=== PATIENT | female | born 1935 | race Caucasian/White ===

== ENCOUNTER 2020-01-31 07:10 | Day surgery (SDC) | payer OTHER ==
[2020-01-30 15:18] LABS: Absolute Lymphocytes (CBC) 1.5 K/uL (0.7-4.9); Basophils % 0.8 % (0-1.3); Hematocrit 46.7 % (36.0-45.0); Lymphocytes % 17.7 % (15.3-44.8); MPV 10.1 fL (7.6-11.3); RBC Red Blood Cell Count 4.82 M/uL (3.86-4.86)
[2020-01-30 16:00] LABS: Potassium 4.8 mmol/L (3.5-5.1)
--- OUTSIDE RECORDS SUMMARY | 2020-01-31 07:14 | XMS REPORT | Clinical Summary ---
:1935 Author Organization [facility] Address [address] [place] [address] Care Team Providers Name Role Phone MD Tamara Primary Care Provider Allergies No Known Active Allergies Medications Medication Sig Dispensed Refills Start Date End Date Status mirtazapine Take 30 mg by 0 05/06/2017 Act jeevan (REMERON) 30 MG mouth nightly. tablet multivitamin with Take 1 tablet 0 Active minerals tablet by mouth daily. glucosam/chond-msm Take 1 tablet 0 Active 1/C/katrina/bor by mouth (GLUCOSAMINE-CHOND daily. 1500 -MSM COMPLEX ORAL) mg/1288mg calcium Take 1 capsule 0 Activ e citrate/vitamin D3 by mouth (CALCIUM CITRATE + daily. With D ORAL) VITAMIN D3 AND k nitroglycerin Place 1 tablet 100 tablet 3 01/25/2018 Active (NITROSTAT) 0.4 MG (0.4 mg total) SL under the tabletIndications: tongue every 5 Aortic valve (five) minutes disorder as needed for chest pain (total of 3 tabs). coenzyme Q10 (CO Take 200 mg by 0 Active Q-10) 100 mg mouth daily. capsule famotidine Take 10 mg by 0 Activ e (PEPCID) 10 MG mouth 2 (two) tablet times a day. PROLIA 60 mg/mL Inject 60 mg 0 01/09/2019 Active syringe syringe under the skin once. levothyroxine Take 1 tablet 90 tablet 0 07/31/2019 A ctive (SYNTHROID) 75 mcg (75 mcg total) tabletIndications: by mouth Coronary artery daily. disease involving manchester coronary artery of [place] heart without angina pectoris, Aortic valve disorder, Atrial fibrillation, unspecified type (HCC) pravastatin Take 1 tablet 90 tablet 3 08/30/2019 Act jeevan (PRAVACHOL) 10 mg (10 mg total) tablet by mouth nightly. ezetimibe (ZETIA) TAKE 1 TABLET 90 tablet 0 10/24/2019 Active 10 mg tablet BY MOUTH EVERY DAY Myrbetriq 25 mg Take 25 mg by 0 11/17/2019 Active tablet extended mouth daily. release 24 hr metoprolol Take 1 tablet 90 tablet 3 01/05/2020 01/05/20 Acti ve succinate XL (25 mg total) 21 (TOPROL-XL) 25 mg by mouth 24 hr tablet daily. apixaban (ELIQUIS) Take 2.5 mg by 0 Active 2.5 mg tablet mouth 2 (two) times a day. furosemide (LASIX) Take 1/2 tab 90 tablet 3 01/05/2020 Active 20 mg tablet (10mg) po qd furosemide (LASIX) Take 1 tablet 180 tablet 3 03/23/201805/14 Discontinued 20 mg (20 mg total) 20 (Reord er) tabletIndications: by mouth 2 Aortic valve (two) times a disorder day. levothyroxine Take 1 tablet 90 tablet 3 08/09/2018 07/31/19 D iscontinued (SYNTHROID, (75 mcg total) 20 (Re order) LEVOXYL) 75 mcg by mouth tabletIndications: daily. Coronary artery disease involving manchester coronary artery of [place] heart without angina pectoris, Aortic valve disorder, Atrial fibrillation, unspecified type (HCC) apixaban (ELIQUIS) Take by mouth 0 0 Discontinued 2.5 mg tablet 2 (two) times 20 (M ed List a day. Cleanup) ezetimibe (ZETIA) Take 10 mg by 0 08/01/19 Discontinued 10 mg tablet mouth daily. 20 (Reo rder) pravastatin Take 10 mg by 0 08/30/19 Disc ontinued (PRAVACHOL) 10 MG mouth nightly. 20 (Reorder) tablet lisinopril Take 10 mg by 0 11/18/2018 01/05/20 Disc ontinued (PRINIVIL) 10 mg mouth daily. 20 (Med List tablet Cleanup) carvedilol (COREG) Take 1 tablet 180 tablet 3 01/03/201901/02 6.25 MG tablet (6.25 mg 20 total) by mouth 2 (two) times a day. lidocaine (ZTLIDO) Apply 1 patch 30 patch 3 01/20/2019 Discontinued 1.8 % adhesive topically 20 patch,medicated daily. ELIQUIS 5 mg TAKE 1 TABLET 180 tablet 3 04/04/2019 01/05/20 D iscontinued tabletIndications: BY MOUTH TWICE 20 Aortic valve A DAY disorder furosemide (LASIX) Take 1 tablet 180 tablet 3 05/15/201901/04 Discontinued 20 mg (20 mg total) 20 (Dose tabletIndications: by mouth 2 adjustment) Aortic valve (two) times a disorder day. ezetimibe (ZETIA) Take 1 tablet 90 tablet 0 08/01/2019 0 Discontinued 10 mg tablet (10 mg total) 20 by mouth daily. furosemide (LASIX) Take 20 mg by 0 0 Discontinued 20 mg tablet mouth 2 (two) 20 (Me d List times a day. Cleanup ) Take 1/2 tab (10mg) po bid furosemide (LASIX) Take 20 mg by 0 0 Discontinued 20 mg tablet mouth daily. 20 (Dos e Take 1/2 tab adjustm ent) (10mg) once daily Active Problems Problem Noted Date Pure hypercholesterolemia 01/06/2020 Chronic diastolic heart failure 01/06/2020 Essential hypertension 01/03/2020 Chronic cerebral ischemia 04/05/2019 Hyperlipidemia LDL goal <70 04/05/2019 Myalgia 04/05/2019 Moderate aortic stenosis 04/03/2019 Chronic bilateral low back pain without sciatica 01/20 Fatigue 09/20/2018 Stented coronary artery 08/09/2018 Late effect of stroke 08/08/2018 Vision disturbance 08/08/2018 Abnormality of gait 08/08/2018 Lymphedema 08/08/2018 Stroke (cerebrum) 07/20/2018 Complete hemianopia 07/10/2018 Acute exacerbation of CHF (congestive heart failure) 0 07/01/2018 Angina at rest 06/29/2018 Abnormal nuclear stress test 06/29/2018 Overview: Added automatically from request for waldo dubon [id number] Aortic valve disorder 01/25/2018 Systolic and diastolic CHF, acute on chronic 8 Bacteremia 09/06/2017 Osteomyelitis of foot 08/24/2017 Abscess or cellulitis of foot 08/22/2017 Atrial fibrillation 08/10/2017 Coronary artery disease involving manchester coronary miranda ry of man[place] heart 08/10/2017 without angina pectoris PAD (peripheral artery disease) 08/10/2017 Congestive heart failure 07/16/2017 Encounters Date Type Specialty Care Team Description 01/17/2020 Office Visit Ophthalmology Douglas Epstein, Unspecified visual field defects; Glaucomatous at rophy (cupping) of optic disc, bilateral 01/17/2020 Travel 01/15/2020 Telemedicine Physical Medicine and Jeanine Gomez, Late effect of stroke (Primary Dx); Rehabilitation Abnormality o f gait; Chronic bilater al low back pain without sciatica; Fatigue, unspec ified type; Lymphedema; Vision disturba nce 01/05/2020 Office Visit Cardiology Karen Nelson Coronary artery disease involving manchester coronary artery of [place] heart without angina pectoris (Primary Dx); MD Alejandro Pure hyperchole sterolemia; Essential hyper tension; Permanent atria l fibrillation (HCC); Chronic diastol ic heart failure (HCC); Moderate aortic stenosis; Pulmonary fibro sis (HCC) 01/05/2020 Orders Only Cardiology Jolie Britton MA 01/05/2020 Refill Cardiology Sha Britton Refill IRIS Dave 01/05/2020 Travel 01/03/2020 Lab Lab John Casanova Atrial fibrilla tionCruzito MD unspecified typ e (HCC) 01/03/2020 Office Visit Neurology John Casanova Atrial fibrilla tion, unspecified type (HCC) (Primary Dx); MD Cruzito Essential hyper tension; Hyperlipidemia LDL goal <70 01/03/2020 Travel 10/24/2019 Refill Cardiology Karen Nelson Refill MD Alejandro 10/23/2019 Refill Karen Howardill MD Alejandro 08/30/2019 Orders Only Cardiology Prosper Seo MA 08/01/2019 Orders Only Cardiology Prosper Seo MA 07/31/2019 Orders Only Cardiology Prosper Seo MA Coronary arter y disease involving man[place] coronary artery of [place] heart without angina pectoris; Aortic valve di sorder; Atrial fibrilla tion, unspecified type (HCC) 07/28/2019 Refill Karen Howard Refill MD Alejandro 07/12/2019 Travel 05/15/2019 Orders Only Cardiology Prosper Seo MA Aortic valve d isorder 04/05/2019 Office Visit Neurology John Casanova Atrial fibrilla tion, unspecified type (HCC) (Primary Dx); MD Cruzito Chronic cerebra l ischemia; Hyperlipidemia LDL goal <70; Myalgia 04/03/2019 Office Visit Cardiology Karen Nelson Coronary artery disease involving [place] coronary artery of [place] heart without angina pectoris (Primary Dx); MD Alejandro Systolic conges tive heart failure, unspecified HF chronicity (HCC); Atrial fibrilla tion, unspecified type (HCC); PAD (peripheral artery disease) ([facility]); Stented coronar y artery; Nonrheumatic ao rtic valve stenosis 04/01/2019 Refill Cardiology Karen Nelson Med Refill MD Alejandro after 01/30/2019 Surgical History Surgery Date Site/Laterality Comments ANGIOPLASTY CORONARY ANGIOPLASTY WITH STENT PLACEMENT AMPUTATION, TOE Left Great Toe HYSTERECTOMY TOTAL KNEE ARTHROPLASTY Left ELECTRICAL CARDIOVERSION 07/20/2017 CARDIAC ELECTROPHYSIOLOGY 07/19/2017 N/A Proced ure: Ep cardioversion PROCEDURE w bart; Surgeon: Karen Nelson MD; Locat ion: [facility] [employer] Invasiv e Location; Service: Cardio vascular; Laterality: N/A; AMPUTATION, TOE 08/26/2017 Toes/Left Procedure: AMPUT ATION OF SECOND TOE, PLAC EMENT ANTIBIOTIC BEADS LEFT FOOT; Surgeon: Cristofer Mckinley DPM; Lo cation: [facility] OPC 19 OR; Serv ice: Podiatry; Later ality: Left; stimulan resorbable antibiotic beads Medical devices from this surgery are in t he Implants section. CARDIAC CATHETERIZATION 09/02/2017 N/A Procedur e: Aortagram abdomen w run of f; Surgeon: Karen Nelson MD; Location: [facility] [employer] Invasive Locatio n; Service: Cardiol ogy; Laterality: N/A; CARDIAC CATHETERIZATION CARDIAC CATHETERIZATION 02/03/2018 N/A Procedur e: Cv arteriograms peripheral; Waldo geon: Karen Nelson MD; Location: [facility] Technology [employer] Architect Invasive Location; Servi ce: Cardiology; Lat erality: N/A; CARDIAC CATHETERIZATION 03/30/2018 N/A Procedur e: Angiogram extremity unilat eral; Surgeon: Lucian Nelson MD; Location: [facility] [employer] Architect Invasive Loc ation; Service: Cardiol ogy; Laterality: N/A; Left CARDIAC CATHETERIZATION 03/30/2018 N/A Procedur e: Cv balloon angioplasty firs t artery; Surgeon: Lucian Nelson MD; Location: [facility]; Service: Cardiol ogy; Laterality: N/A; Left Anterior Tibial and Peroneal CARDIAC CATHETERIZATION 07/04/2018 N/A Procedur e: Selective coronary angiogr aphy; Surgeon: Lucian Nelson MD; Location: [facility]; Service: Cardiol ogy; Laterality: N/A; CARDIAC CATHETERIZATION 07/08/2018 N/A Procedur e: Ivus coronary; Surgeon: Lucian Nelson MD; Location: [facility]; Service: Cardiol ogy; Laterality: N/A; IVUS of circumflex and L AD Medical devices from this surgery are in t he Implants section. CARDIAC CATHETERIZATION 07/08/2018 N/A Procedur e: Cv percutaneous coronary interve ntion; Surgeon: Lucian Nelson MD; Location: [facility]; Service: Cardiol ogy; Laterality: N/A; LAD and circumflex arter y Medical devices from this surgery are in t he Implants section. Medical History Medical History Date Comments Atrial fibrillation (HCC) Myocardial infarct (HCC) Hypertension Hypothyroidism CHF (congestive heart failure) (HCC) Coronary artery disease Kidney stone Fracture h/o back fracture 6 years ago Sepsis (HCC) Systolic heart failure (HCC) Ischemic cardiomyopathy Paroxysmal A-fib (HCC) Aortic stenosis Toe amputation status, left Stroke (HCC) Stroke (HCC) Family History Medical History Relation Name Comments Heart disease Father Heart disease Mother Relation Name Status Comments Father Mother Social History Tobacco Use Types Packs/Day Years Used Date Never Smoker Smokeless Tobacco: Never Used Alcohol Use Drinks/Week oz/Week Comments No Sex Assigned at Date Recorded Not on file Job Start Date Occupation Industry Not on file Not on file Not on file COVID-19 Exposure Response Date Recorded In the last month, have you been in contact with No / Unsure 01/05/2020 10:02 AM [employer] someone who was confirmed or suspected to have Coronavirus / COVID-19? Last Filed Vital Signs Vital Sign Reading Time Taken Comments Blood Pressure 98/66 01/05/2020 10:16 AM [employer] Pulse 101 01/05/2020 10:16 AM [employer] Temperature 36.1 C (97 F) 01/03/2020 10:55 AM [employer] Respiratory Rate 18 04/03/2019 1:01 PM [employer] Oxygen Saturation - - Inhaled Oxygen Concentration - - Weight 70.3 kg (155 lb) 01/17/2020 9:23 AM [employer] Height 172.7 cm (5' 8") 01/17/2020 9:23 AM [employer] Body Mass Index 23.57 01/17/2020 9:23 AM [employer] Plan of Treatment Date Type Specialty Care Team Description 02/12/2020 Office Visit Ophthalmology Pao Weber MD [address] [place], [place] [address] [phone] 07/05/2020 Office Visit Cardiology Karen Nelson MD [address] [place], [place] [address] [phone] 01/13/2021 Office Visit Physical Medicine and Jeanine Gomez MD Rehabilitation [address] [place], [place] [address] [phone] Health Maintenance Due Date Last Done Comments SHINGLES VACCINES (#1) 1983 65+ PNEUMOCOCCAL VACCINE (2 of 2 - PPSV23) 04/23/199811/18, 11/13/2014 INFLUENZA VACCINE 09/30/2019 Implants Implanted Type Area Park Ranger Device Shelf Model / Identifier Expiration Serial / Date Lot Stent Coronary Syst Synergy (Mr) 3.00mm X 24mm - [id number] Coronary N/A: BSC 05/03/2020 [id number] / Implanted: 07/08/2018 at [facility] (Quantity not on file) Terence nts N/A INTERVENTIONAL / CARDIOLOGY [id number] Stent Coronary Syst Synergy (Mr) 3.50mm X 32mm - [id number] Coronary N/A: BSC 04/19/2020 [id number] / Implanted: 07/08/2018 at [facility] (Quantity not on file) Terence nts N/A INTERVENTIONAL / CARDIOLOGY [id number] Jorge Langley Rapid Cure 5cc Paste Volume 12cc Bead Volume - [id number] Surgical Left: BIOCOMPOSITES 01/29/2020 [id number] / Implanted: Qty: 1 on 08/26/2017 by Cristofer Mckinley D PM at [facility] Implants; Foot / Expanders; 01/15-R35 7 Extenders; Surgical Wires System Clsr Sut Meditd 6fr Perclose Proglide - [id number] Surgic al N/A: SHEPHERD VASCULAR 03/31/2020 [id number] / Implanted: 07/08/2018 at [facility] (Quantity not on file) Imp lants; N/A DEVICES / Expanders; [id number] Extenders; Surgical Wires Procedures Procedure Name Priority Date/Time Associated Diagnosis Comme nts ECG 12-LEAD Routine 01/05/2020 10:20 Permanent atrial Results for this AM [employer] fibrillation (HCC) procedure are in the results section. ANTI XA APIXABAN Routine 01/03/2020 11:52 Atrial fibrillation, Results for this AM [employer] ADVISOR unspecified type procedure a re in ([facility]) the results section. TTE COMPLETE, WO Routine 04/03/2019 1:32 Atrial fibrillation, Results for this CONTRAST, W DOPPLER PM [employer] ADVIS[employer] unspecified type proc edure are in ([address]) ([facility]) the results Coronary artery section. disease involving man[place] coronary artery of [place] heart without angina pectoris PAD (peripheral artery disease) ([facility]) ECG 12-LEAD Routine 04/03/2019 1:11 Systolic congestive Resu lts for this PM [employer] heart failure, procedure are in unspecified HF the results chronicity ([facility]) section. Atrial fibrillation, unspecified type ([facility]) after 01/30/2019 Results ECG 12 lead (01/05/2020 10:20 AM [employer])Only the most recent of2 resultswithin the time period is included. Pathologist Sig nature Ventricular rate 108 [facility] Atrial rate 129 [facility] QRSD interval 120 [facility] QT interval 342 [facility] QTC interval 458 [facility] QRS axis 1 -74 [facility] T wave axis 98 [facility] EKG impression Atrial fibrillation with rap id ventricular response-Left axis deviation-Anterolateral infarct (cited on or before 03-JAN-2019)-Abnormal ECG-In automated comparison with ECG of 03-APR-2019 13:11,-Questionable change in initial forces of Lateral [facility] MUSE leads- Specimen Narrative Performed At This result has an attachment that is no t available. Performing Organization Address [facility]/ZIP Code Phon e Number [facility] MUSE [address] [place] [address] Anti Xa Apixaban (01/03/2020 11:52 AM [employer]OR) Anti Xa, Apixaban 227 ng/mL [facility] Comment: HOSPITAL Therapeutic ranges not available, typical levels 2-4 h rs post 2.5 mg dose: 16-108 ng/mL; post 5 mg dose: 103-155 ng/ mL. Apixaban is approved for use without monitoring. Plasma apixaban levels depend on dose and sample timin g. This test has been modified from the english division chair's in structions. The performance characteristics were determined by [facility] in a manner consistent with CLIA requirements. This test has not been cleared or a pproved by U.S. Food and Drug Administration. Specimen Blood Performing Organization Address City/[facility] Phon e Number [facility] DEPARTMENT OF PATHOLOGY AND [address], [place] [address] GENOMIC MEDICINE [facility] [address] [place] [address] Echocardiogram complete w contrast and 3D if needed (04/03/2019 1:32 PM [employer]) Specimen Narrative Performed At [facility] Echo cardiography Report Pat.Name: DOTTY TUTTLE Pat.ID: [id number] .Date: 04/03/2019 Refer.MD: KAREN NELSON MD Exam Time: 11:26:00 AM Study Type:Ro utine Echo Height: 69in Weight: 154lb BSA: 1.85 m2 Ag e: 1935,83Y Sex: FEMALE BP: 98/62 HR: 113 bpm Sonogrp hr: JG Knott Pat. Stat.:Outpatient Room: [facility] Study Status:Final Echo Event ID:[id number] Order ID: [id number] Reason for Study:Atrial fibrillation, un specified type (HCC) [I48.91 (ICD-10-CM)]; Coronary artery disease involving man[place] coronary artery of [place] heart withoutangina pectoris [I25.10 (ICD-10-C M)]; PAD (peripheral artery disease)([facility]) [I73.9 (ICD-10-CM)] History / Clinical:Atrial Fibrillation, Hypertension, PR Procedures: 2D Echo, Colorflow Doppler, Intravenous Optison Contrast Race: C SUMMARY: Concentric left ventricular remodeling. LV EF varies with RR interval from low 3 0s to low 50s. LA volume is severely enlarged. LV filling pressure is elevated. Estimated PA systolic pressure is 48 mmH g, assuming a mean RAP of 10 mmHg. FINDINGS: LV: LV size is normal. Concentr ic left ventricular remodeling. Overall wall motion is mildly hypokinetic. LV EF varies with RR interval from l ow 30s to low 50s. RV: RV size is normal. RV systo lic function is normal. LA: LA volume is severely enlar ged. RA: RA volume is mild to modera tely enlarged. AO: Aortic root diameter is nor mal. MARIIA: No pericardial effusion. AV: Severe thickening and calci fication of AV leaflets. MV: Moderate to severe thickeni ng and calcification of mitral leaflets. Mild mitral r egurgitation. PV: No structural PV abnormalit ies noted. TV: No structural TV abnormalit ies noted. Mild tricuspid regurgitation Elizabeth: LV relaxation is impaired. L V filling pressure is elevated. Other: Estimated PA systolic pressu re is 48 mmHg, assuming a mean RAP of 10 mmHg. MEASUREMENTS: 2D Parasternal Long [place] Ao An 2.2 cm LVPWd 1.2 cm Ao Rtd 3.3 cm Index 1.8 cm/m2 LA Ds 3.8 cm IVSd 0.91 cm RWT 0.59 LVIDd 3.9 cm Index 2.1 cm/m2 LV Mass 128 g (87-12 9) LVIDs 2.8 cm LVM In dex 69 g/m LV%fs 27 % LVOT 2.1 cm LV EF Biplane LV EF 26 % (55-7 5) LA Sng Plane LA Area 26 cm (8.8-23.4) LA Vol 95 ml Index 51 ml/m2 LA LngAx 6 cm RA Sng Plane RA Vol 83 ml Index 45 ml/m2 RA LngAx 6.5 cm RA Area 25 cm (8.3-1 9.5) LVOT LVOT Area 3.4 cm DOPPLER TV Pressure Gradient TV PkVel 309 cm/s TV PG 38 mmHg Signed 04/04/2019 03:27 PM Chema Govea M.D. Procedure Note Interface, Radiology Results In - 2019 3:31 PM [employer] [facility] Echocardiography Report Pat.Name: DOTTY TUTTLE Pat.I D: [id number] .Date: 04/03/2019 Refer .MD: KAREN NELSON MD Exam Time: 11:26:00 AM Study Type:Routine Echo Height: 69in Weigh t: 154lb BSA: 1.85 m2 Age: 1 1935,83Y Sex: FEMALE BP: 98/62 HR: 113 bpm Sonog rphr: JG Knott Pat. Stat.:Outpatient Room: [facility] Study Status:Final Echo Event ID:[id number] Order ID: [id number] Reason for Study:Atrial fibrillation, un specified type (HCC) [I48.91 (ICD-10-CM)]; Coronary artery disease involving [place] coronary artery of [place] heart withoutangina pectoris [I25.10 (ICD-10-C M)]; PAD (peripheral artery disease)(HCC) [I73.9 (ICD-10-CM)] History / Clinical:Atrial Fibrillation, Hypertension, PR Procedures: 2D Echo, Colorflow Doppler, Intravenous Optison Contrast Race: C SUMMARY: Concentric left ventricular remodeling. LV EF varies with RR interval from low 3 0s to low 50s. LA volume is severely enlarged. LV filling pressure is elevated. Estimated PA systolic pressure is 48 mmH g, assuming a mean RAP of 10 mmHg. FINDINGS: LV: LV size is normal. Concentric left ventricular remodeling. Overall wall motion is mildly hypokinetic. LV EF varies with RR interval from low 30s to low 50s. RV: RV size is normal. RV systolic function is normal. LA: LA volume is severely enlarged . RA: RA volume is mild to moderatel y enlarged. AO: Aortic root diameter is normal . MARIIA: No pericardial effusion. AV: Severe thickening and calcific ation of AV leaflets. MV: Moderate to severe thickening and calcification of mitral leaflets. Mild mitral regurgi tation. PV: No structural PV abnormalities noted. TV: No structural TV abnormalities noted. Mild tricuspid regurgitation Elizabeth: LV relaxation is impaired. LV filling pressure is elevated. Other: Estimated PA systolic pressure is 48 mmHg, assuming a mean RAP of 10 mmHg. MEASUREMENTS: 2D Parasternal Long [place] Ao An 2.2 cm LVPW d 1.2 cm Ao Rtd 3.3 cm Inde x 1.8 cm/m2 LA Ds 3.8 cm IVSd 0.91 cm RWT 0.59 LVIDd 3.9 cm Inde x 2.1 cm/m2 LV Mass 128 g (87-129) LVIDs 2.8 cm LVM Index 69 g/m LV%fs 27 % LVOT 2.1 cm LV EF Biplane LV EF 26 % (55-75) LA Sng Plane LA Area 26 cm (8.8-23.4) L A Vol 95 ml Index 51 ml/m2 LA LngAx 6 cm RA Sng Plane RA Vol 83 ml Inde x 45 ml/m2 RA LngAx 6.5 cm RA Area 25 cm (8.3-19.5) LVOT LVOT Area 3.4 cm DOPPLER TV Pressure Gradient TV PkVel 309 cm/s TV P G 38 mmHg Signed 04/04/2019 03:27 PM Chema Govea M.D. Performing Organization Address City/State/ZIP Code Phon e Number [facility] [address] [place] [address] after 01/30/2019 Insurance Payer Benefit Plan / Subscriber ID Effective Dates Phone Addre ss Type Group MEDICARE MEDICARE PART A AND [id number] 1998-[place] Medicare B t AETNA [facility]NA [facility] [id number] 2000-[place] Indemnity INDEMNITY t Advance Directives For more information, please contact: [phone] Type Date Recorded Patient Morning News Producer Explanati on Advance Directives, Living Will and Medical Power of Financial Controller Advance Directives, 02/01/2018 12:00 AM DURABLE P ower of Living Will and Financial Controller Medical Power of Financial Controller
--- OUTSIDE RECORDS SUMMARY | 2020-01-31 07:15 | XMS REPORT | Continuity of Care Document ---
:[address] [facility] t Address [address] [place] [address] Care Team Providers Name Role Phone Tamara GILL Primary Care Physician Gonzalo Epstein MD Attending Clinician Christian Jimenez MD Attending Clinician Leslie GILL, R. Attending Clinician Reba SIMMONS Attending Clinician Unavailable Cruzito Fry MD Attending Clinician Gabbi SIMMONS Attending Clinician Unavailable Payers Payer Name Policy Type Policy Effective Date Expiration Date Sour ce Number MEDICAREMEDICARE PART [id number] 1998 [facility] A AND 00:00:00 [facility] [id number] 1998[facility] [place] [place] [id number] 2000 [facility] 00:00:00 Sabianist [id number] 03/2000-PresentIndemni ty Problems Condition Condition Condition Status Onset Resolution Last Treating Co mments Source Name Details Category Date Date Treatment Clinician Date 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 1-07 [facility] sterolemia sterolemia 00:00: st 00 Chronic Chronic Disease Active 2019-03 [place] diastolic diastolic 1-07 [facility] jennifer heart heart 00:00: st failure failure 00 Essential Essential Disease Active 2019-03 [place] [facility] hypertensi hypertensi 1-04 Me th[facility] on on 00:00: st 00 Chronic Chronic Disease Active [place] cerebral cerebral 2-05 Method i ischemia ischemia 00:00: st 00 Hyperlipid Hyperlipid Disease Active [place] emia LDL emia LDL 2-05 Method i goal <70 goal <70 00:00: st 00 Myalgia Myalgia Disease Active [place] 2-05 Methodi 00:00: st 00 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-03 [facility] stenosis stenosis 00:00: st 00 Chronic Chronic Disease Active 2018-03 [place] bilateral bilateral 1-22 [facility] jennifer low back low back 00:00: st pain pain 00 without without sciatica sciatica Fatigue Fatigue Disease Active [place] 7-23 Methodi 00:00: st 00 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 Method i artery artery 00:00: st 00 Late Late Disease Active [place] effect of effect of 6-10 Meth jennifer stroke stroke 00:00: st 00 Vision Vision Disease Active [place] disturbanc disturbanc 6-10 Me odi e e 00:00: st 00 Abnormalit Abnormalit Disease Active [place] y of gait y of gait 6-10 Meth jennifer 00:00: st 00 Lymphedema Lymphedema Disease Active [place] 6-10 [facility]i 00:00: st 00 Stroke Stroke Disease Active [place] (cerebrum) (cerebrum) 5-22 Me thodi 00:00: st 00 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 5-12 Me thodi 00:00: st 00 Acute Acute Disease Active [place] exacerbati exacerbati 5-03 Me [facility] on of CHF on of CHF 00:00: st (congestiv (congestiv 00 e heart e heart failure) failure) Angina at Angina at Disease Active [place] [facility] rest rest - Methodi 00:00: st 00 Abnormal Abnormal Disease Active Overview: [place] nuclear nuclear 5- Added [facility] stress stress 00:00: automatic st test test 00 ally from request for surgery [id number] Aortic Aortic Disease Active 2017-03 [place] valve valve 03-27 [facility] disorder disorder 00:00: st 00 Systolic Systolic Disease Active [place] and and 09-06 [facility] diastolic diastolic 00:00: st CHF, acute CHF, acute 00 on chronic on chronic Bacteremia Bacteremia Disease Active [facility] 7-09 Methodi 00:00: st 00 Osteomyeli Osteomyeli Disease Active [facility] tis of tis of 6-26 [facility] foot foot 00:00: st 00 Abscess or Abscess or Disease Active [facility] cellulitis cellulitis 6-24 [facility] of foot of foot 00:00: st Atrial Atrial Disease Active [place] fibrillati fibrillati 6-12 [facility] on on 00:00: st 00 [facility] disease disease 00:00: st involving involving 00 eek eek coronary coronary artery of artery of [place] heart heart without without angina angina pectoris pectoris PAD PAD Disease Active [place] (periphera (periphera 6-12 Me [facility] l artery l artery 00:00: st disease) disease) 00 Congestive Congestive Disease Active [facility] heart heart 5-18 [facility] failure failure 00:00: st 00 Allergies, Adverse Reactions, Alerts This patient has no known allergies or adverse reactions. Family History Family Member Diagnosis Comments Start Date Stop Date Source Natural father Heart disease [facility] Natural mother Heart disease [facility] Social History Social Habit Start Date Stop Date Quantity Comments Source Sex Assigned At [facility] ethodist Exposure to Not sure [place] Metho dist SARS-CoV-2 (event) Tobacco use and 2020-01-17 2020-01-17 Never used [facility] ethodist exposure 00:00:00 00:00:00 Alcohol intake 2020-01-17 2020-01-17 [facility] non-drinker of alcohol (finding) Smoking Status Start Date Stop Date Source Never smoker [facility] t Medications Ordered Filled Start Stop Current Ordering Indication Dosage Frequency Signature Comments Components Source Medication Medication Date Date Medication? Clinician (SIG) Name Name multivitami 2019-03 Yes 1{tbl} QD Take 1 [place] n with 1-18 tablet by Methodi minerals 09:23: mouth st tablet 02 daily. glucosam/ch 2019-03 Yes 1{tbl} QD Take 1 [place] ond-msm1/C/ 1-18 tablet by Met lazaro herndon/bor 09:23: mouth st (GLUCOSAMIN 02 daily. E-CHOND-MSM 1500 COMPLEX mg/1288mg ORAL) coenzyme 2019-03 Yes 200mg QD Take 200 [place] Q10 (CO 1-18 mg by Methodi Q-10) 100 09:23: mouth st mg capsule 02 daily. famotidine 2019-03 Yes 10mg Q.5D Take 10 mg [place] (PEPCID) 10 1-18 by mouth 2 Me [facility] MG tablet 09:23: (two) st 02 times a day. calcium 2019-03 Yes 1{capsu QD Take 1 [place] citrate/vit 1-18 le} capsule by Me [facility] carson D3 09:21: mouth st (CALCIUM 12 daily. CITRATE + D With ORAL) VITAMIN D3 AND k apixaban 2019-03 Yes 2.5mg Q.5D Take 2.5 [place] (ELIQUIS) 1-18 mg by Methodi 2.5 mg 09:21: mouth 2 st tablet 12 (two) times a day. furosemide 2019-03- No 20mg QD Take 20 mg [facility] (LASIX) 20 03-06 by mouth Meth jennifer mg tablet 14:06: 00:[address] 52 :00 Take 1/2 tab (10mg) once daily furosemide 2019-03 2020- No 20mg Q.5D Take 20 mg [place] (LASIX) 20 03-06 by mouth 2 Me [facility] mg tablet 14:06: 00:00 (two) st 37 :00 times a day. Take 1/2 tab (10mg) po bid furosemide 2019-03 Yes Take 1/2 [place] [facility] (LASIX) 20 03-06 tab (10mg) Met hodi mg tablet 00:00: po qd st 00 metoprolol 2019-03- Yes 25mg QD Take 1 [place] succinate 03-06 tablet (25 Met hodi XL 00:00: 23:59 mg total) st (TOPROL-XL) 00 :00 by mouth 25 mg 24 hr daily. tablet Myrbetriq Yes 25mg QD Take 25 mg [place] 25 mg 9-18 by mouth Methodi tablet 00:00: daily. st extended 00 release 24 hr ezetimibe Yes TAKE 1 [place] (ZETIA) 10 8-25 TABLET BY Meth jennifer mg tablet 00:00: MOUTH st 00 EVERY DAY pravastatin 0 2019- No 10mg QD Take 10 mg [place] (PRAVACHOL) 08-29 07 by mouth Met hodi 10 MG 14:48: 00:[address] tablet 58 :00 pravastatin 2019-0 Yes 10mg QD Take 1 [place] (PRAVACHOL) 7 tablet (10 Me thodi 10 mg 00:00: mg total) st tablet 00 by mouth nightly. ezetimibe 2019-2019- No 10mg QD Take 10 mg [place] (ZETIA) 10 07-31 06- by mouth Meth jennifer mg tablet 11:05: 00:[address] 36 :00 ezetimibe 2019-0 2019- No 10mg QD Take 1 [place] (ZETIA) 10 07-31 08-25 tablet (10 [facility] mg tablet 00:00: 00:00 mg total) st 00 :00 by mouth daily. levothyroxi Yes Atrial 75ug QD Take 1 [place] ne 07-30 fibrillatio tablet (75 [facility] (SYNTHROID) 00:00: n, mcg total) st 75 mcg 00 unspecified by mouth tablet type (HCC) daily. furosemide 2019- No Aortic 20mg Q.5D Take 1 [place] (LASIX) 20 3-16 01-04 valve tablet (20 M ethodi mg tablet 00:00: 00:00 disorder mg total) st 00 :00 by mouth 2 (two) times a day. apixaban 2019- 2020- No Q.5D Take by [place] (ELIQUIS) 205 mouth 2 Method i 2.5 mg 10:53: 00:00 (two) st tablet 41 :00 times a day. ELIQUIS 5 2020- No Aortic TAKE 1 [place] [facility] mg tablet 2-01-04 valve TABLET BY Met hodi 00:00: 00:[address] 00 :00 TWICE A DAY lidocaine 2018-03 2020- No 1{patch QD Apply 1 [place] (ZTLIDO) 03-22 } patch Methodi 1.8 % 00:00: 00:[address] adhesive 00 :00 daily. patch,medic ated PROLIA 60 2018-03 Yes 60mg Inject 60 [place] [facility] mg/mL 1-11 mg under Methodi syringe 00:00: the skin st syringe 00 once. carvedilol 2018-03 2020- No 6.25mg Q.5D Take 1 Ho [place] (COREG) 03-05 tablet Methodi 6.25 MG 00:00: 23:59 (6.[address] tablet 00 :00 total) by mouth 2 (two) times a day. lisinopril 2019- No 10mg QD Take 10 mg Sam (PRINIVIL) 11-18 by mouth Meth jennifer 10 mg 00:00: 00:[address] tablet 00 :00 levothyroxi 2019- No Atrial 75ug QD Take 1 [place] ne 08-09 fibrillatio tablet (75 M ethodi (SYNTHROID, 00:00: 00:00 n, mcg total) st LEVOXYL) 75 00 :00 unspecified by mouth mcg tablet type (HCC) daily. furosemide 2019- No Aortic 20mg Q.5D Take 1 Scott frausto (LASIX) 03-23 valve tablet (20 M ethodi mg tablet 00:00: 00:00 disorder mg total) st 00 :00 by mouth 2 (two) times a day. nitroglycer 2017-03 Yes Aortic .4mg Place 1 [place] in 03-27 valve tablet Methodi (NITROSTAT) 00:00: disorder (0.[address] 0.4 MG SL 00 total) tablet under the tongue every 5 (five) minutes as needed for chest pain (total of 3 tabs). mirtazapine Yes 30mg QD Take 30 mg Sam (REMERON) 08 by mouth Method i 30 MG 00:00: nightly. st tablet 00 Vital Signs Vital Name Observation Time Observation Value Comments Source Body height 2020-01-17 09:23:00 172.7 cm Sam Gil Body weight 2020-01-17 09:23:00 70.308 kg Sam Gil BMI 2020-01-17 09:23:00 23.57 kg/m2 Sam Gil Systolic blood 2020-01-05 10:16:00 98 mm[Hg] Coreen n Sabianist pressure Diastolic blood 2020-01-05 10:16:00 66 mm[Hg] Madalyn on Sabianist pressure Heart rate 2020-01-05 10:16:00 101 /min Sam Gil Body temperature 2020-01-03 10:55:00 36.11 [place] Dewayne Gil Respiratory rate 2019-04-03 13:01:00 18 /min Dewayne Gil Procedures Procedure Date / Time Performed Performing Clinician Sour e ECG 12-LEAD 2020-01-05 10:20:20 Karen Murillo odjena ANTI XA APIXABAN 2020-01-03 11:52:00 Jesús Fry TTE COMPLETE, WO 2019-04-03 13:32:50 Karen Murillo Met hodist CONTRAST, W DOPPLER ([id number]) ECG 12-LEAD 2019-04-03 13:11:11 Karen Murillo Meth odist Plan of Care Planned Activity Planned Date Details Comments Source Future Scheduled 2019-09-30 INFLUENZA VACCINE Dewayneto leo Sabianist Test 00:00:00 [code = INFLUENZA VACCINE] Future Scheduled 2000 65+ PNEUMOCOCCAL [place] Sabianist Test 00:00:00 VACCINE (2 of 2 - PPSV23) [code = 65+ PNEUMOCOCCAL VACCINE (2 of 2 - PPSV23)] Future Scheduled 1985 SHINGLES VACCINES (#1) [place] Sab[facility]ist Test 00:00:00 [code = SHINGLES VACCINES (#1)] Encounters Start End Encounter Admission Attending Care Care Encounter Source Date/Time Date/Time Type Type Clinicians Facility Department ID 2020-01-17 2020-01-17 Outpatient PATRICIA EPSTEIN [facility] [id number] [place] 00:00:00 00:00:[address] 2020-01-15 2020-01-15 Outpatient MICHI JIMENEZ [facility] [id number] [place] 00:00:00 00:00:[address] 2020-01-05 2020-01-05 Outpatient LESLIE [facility] [id number] [place] 00:00:00 00:00:[address] KAREN [address] 2020-01-03 2020-01-03 Outpatient JESÚS FRY [facility] [id number] [place] 00:00:00 00:00:[address] 2020-01-03 2020-01-03 Outpatient JESÚS FRY [facility] [id number] [place] 00:00:00 00:00:[address] Results Test Description Test Time Test Comments Results Result Comments Source ECG 12 lead 2020-01-05 10:50:19 Test Item Value Reference Range Interpretation Comme nts Ventricular rate (test code = 253) 108 Atrial rate (test code = 255) 129 QRSD interval (test code = 260) 120 QT interval (test code = 264) 342 QTC interval (test code = 265) 458 QRS axis 1 (test code = 268) -74 T wave axis (test code = 270) 98 EKG impression (test code = 273) Atrial fibrillation with rapid claudia tricular response-Left axis deviation-Anterolateral infarct (cited on or before 03-JAN-2019)-Abnormal ECG-In automated comparison with ECG of 03-APR-2019 13:11,-Questionable change in initial forces of Lateral leads- Sam [facility] [id number] 13:11:10 Test Item Value Reference Range Interpretation Comments Anti Xa, Apixaban 227 ng/mL Therapeuti c ranges not (test code = available, typi cooper levels 63382-6) 2-4 hrs post 2. 5 mg dose: 16-108 ng/mL; p ost 5 mg dose: 103-155 n g/mL. Apixaban is pedro roved for use without mon itoring. Plasma apixaban levels depend on dose and sample timing. This te st has been modified f rom the account review specialist's instructions.Th e performance characteristics were determined by [facility] in a manner consiste nt with ROOPA hawley. This test has not be en cleared or approved by U.S. Food and Drug Admini stration. Sam Gil
[2020-01-31] MEDS ORDERED: Ringers Lactate 1,000 ML IV ONE (07:50)
[2020-01-31] MEDS: CEFAZOLIN/SWI 1gm 1 GM/10 ML SYR ONE ×2 (08:40→09:00)
[2020-01-31] MEDS ORDERED: propofoL 200 MG/20 ML VIAL IV ONE (08:54)
[2020-01-31] MEDS ORDERED: LIDOCAINE 1% MPF 5 ML VIAL ONE (08:54)
[2020-01-31] MEDS ORDERED: FENTANYL CITR 100 MCG/2 ML ONE (08:54)
[2020-01-31] MEDS ORDERED: Phenylephrine HCl 10 MG/ML 1 ML VIAL ONE (09:19)
[2020-01-31] MEDS ORDERED: NS 0.9% VIAL 10 ML ONE (09:19)
[2020-01-31] MEDS ORDERED: ONDANSETRON 4 MG/2 ML VIAL ONE (09:28)
[2020-01-31] MEDS ORDERED: KETOROLAC 30 MG/ML INJ ONE (09:28)
--- NOTE | 2020-01-31 09:44 | P.BOP ---
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
[2020-01-31 11:04] VITALS: TEMP 97.9; O2SAT 100
--- NOTE | 2020-01-31 11:11 | OP ---
Date of Procedure: 01/31/2020 Surgeon: Rajesh Lehman MD Preoperative Diagnosis: Ulcerated right arm mass. Postoperative Diagnoses: Ulcerated right arm mass, squamous cell carcinoma. Procedure: Wide excision of a right posterior upper arm squamous cell carcinoma with frozen section, 7 x 4 cm with layered closure. Anesthesia: General plus local. Pathology shows squamous cell carcinoma, margin free of tumor per Dr. Khanna. Indications: This is the case of an 84-year-old patient with non-healing wound over the right upper arm, referred to our clinic for wide excision since it was suspected to be cancer. She wants to have this done in 1 setting, so we scheduled her for a wide excision of an ulcerated mass with frozen sec tion with benefits, alternatives, and risks including, but not limited to infection, bleeding, damage to adjacent structures anesthesia complication, nonhealing wound, KS, and even . She also unde rstands this may not relieve the symptoms. She might need more than one surgical intervention. We a re going to do an attempt to trying to close this by primary intention, but since it was ulcerated an d may have some bacteria content on it, so we want to close that. If we do not see clinically in the next few days she is getting better, we might have to let it heal by secondary intention with gibson mckee and she is fully aware of that. Description Of Procedure: The patient was brought to the operating room, placed in supine position. Anesthesia was done without complication. The area of concern was marked previously by me and the pa harman in the holding room. A large wedge incision was made in the posterior arm to include the large mass effect and the ulceration. This was done with gross negative margins. Sent to the pathologist marked for orientation. The pathology comes back as squamous cell carcinoma, Margins free of tumor. Area was irrigated. Hemostasis obtained. We closed this in layers using 0 chromic and deep layers and then a 3-0 nylon on the skin. The patient tolerated the procedure well. This is a large area s o we have to elevate some flaps to be able to close this properly. The patient tolerated the procedu re well. Area was covered with sterile dressings. The patient was sent to recovery in stable condit ion. 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 Procedure: Wide excision with frozen section of right posterior arm squamous cell carcinoma. Disposition: Home. Activity: As tolerated, no heavy lifting. Discharge Instructions: Keep the area dry for 24 hours, then may remove outer dressings and shower. Use Bactroban over the area and covered with sterile dressings again. Medications: Include Tylenol 3 q.4 hours p.r.n. pain and Bactrim DS p.o. b.i.d. Plan: Follow up in my office in 1 week. Call for appointment on at [phone]. CLIFTON/IRVIN Voice ID: [id number] Report ID: [id number]
[2020-01-31 11:50] VITALS: BP 135/74
== END 2020-01-31 11:30 | disposition home or self-care (01) ==
LOC: OR 07:10
PROVIDERS: ATTEND Surgery
PROC: 0HBBXZZ Excision of Right Upper Arm Skin, External Approach (ICD-10-PCS; 2020-01-31)
PROC: 0HQBXZZ Repair Right Upper Arm Skin, External Approach (ICD-10-PCS; principal; 2020-01-31 08:00)
DX: D04.61 Carcinoma in situ of skin of right upper limb, including shoulder (principal); I25.10 Atherosclerotic heart disease of native coronary artery without angina pectoris; I12.9 Hypertensive chronic kidney disease with stage 1 through stage 4 chronic kidney disease, or unspecified chronic kidney disease; N18.9 Chronic kidney disease, unspecified; Z95.5 Presence of coronary angioplasty implant and graft; I48.91 Unspecified atrial fibrillation; I25.2 Old myocardial infarction; I69.398 Other sequelae of cerebral infarction; H53.9 Unspecified visual disturbance; E07.9 Disorder of thyroid, unspecified; Z20.828 Contact with and (suspected) exposure to other viral communicable diseases
CPT/HCPCS: 85025; 80048; 36415; 88331; 88332; 88305; 11606; 12032; U0002; J2704; J2370; J3010; J0690; J7120; J2405